=== PATIENT | female | born 1990 | race Caucasian/White ===

== ENCOUNTER → 2023-07-25 | Outpatient (CLI) | payer OTHER ==
[2023-07-25 16:07] LABS: HEMOGLOBIN 12.6 g/dl (12.0-15.5); MEAN CORPUSCULAR HEMOGLOBIN 30.1 pg (27.0-33.0); MEAN CORPUSCULAR HGB CONC 32.3 g/dl (32.0-36.5); MEAN CORPUSCULAR VOLUME 93.3 fl (80.0-96.0); PLATELET COUNT, AUTOMATED 334 10^3/uL (150-450); RED BLOOD COUNT 4.18 10^6/uL (4.00-5.40)
[2023-07-25 16:20] LABS: HEMOGLOBIN A1c 5.2 % (4.0-6.0)
== END ==
LOC: M PLALAB 12:34
PROVIDERS: ATTEND Obstetrics & Gynecology
DX: E28.2 Polycystic ovarian syndrome (principal)

== ENCOUNTER → 2023-08-01 | Outpatient (CLI) | payer OTHER | LOC: M RAD 14:43 | PROVIDERS: ATTEND Obstetrics & Gynecology | DX: E28.2 Polycystic ovarian syndrome (principal) ==

== ENCOUNTER → 2023-12-05 | Outpatient (REF) | payer OTHER ==
[2023-12-07 15:48] LABS: HPV APTIMA Not Detected (Not Detected)
== END ==
LOC: M SFHCWAGY 15:11
PROVIDERS: ATTEND Obstetrics & Gynecology
DX: Z12.4 Encounter for screening for malignant neoplasm of cervix (principal); R87.610 Atypical squamous cells of undetermined significance on cytologic smear of cervix (ASC-US)
CPT/HCPCS: 87624; G0123

== ENCOUNTER 2025-01-15 13:46 | Outpatient (CLI) | payer OTHER ==
[~2025-01-15] VITALS: Ht 165.1 cm; Wt 68.1 kg
[~2025-01-15 13:46] MED LIST: ALBUTEROL SULFATE 2.5 MG/0.5 ML INH CONCENTRATE NEB SOLN INH PRN; EPINEPHrine INJ 1 MG/ML 1ML AMP IM PRN; diphenhydrAMINE 50 MG/ML VIAL IV PRN
[2025-01-15] MEDS: FERRIC CARBOXYMALTOSE 750 MG (VIAL MATE) IN 100ML NS IV ONE (14:45)
[2025-01-15 15:25] VITALS: BP 122/73; O2SAT 99
== END 2025-01-15 15:30 | disposition home or self-care (01) ==
LOC: M INFU 13:46
PROVIDERS: ATTEND Physician Assistant
DX: D50.9 Iron deficiency anemia, unspecified (principal)
CPT/HCPCS: 96365; J1439

== ENCOUNTER → 2025-01-16 | Outpatient (CLI) | payer OTHER | LOC: M WHC 11:47 | PROVIDERS: ATTEND Obstetrics & Gynecology | DX: N84.0 Polyp of corpus uteri (principal) ==

== ENCOUNTER 2025-01-22 13:45 | Outpatient (CLI) | payer OTHER ==
[2025-01-22] MEDS: FERRIC CARBOXYMALTOSE 750 MG (VIAL MATE) IN 100ML NS IV ONE (14:22)
[2025-01-22 14:40] VITALS: BP 115/58; O2SAT 100
== END 2025-01-22 14:40 ==
LOC: M INFU 13:45
PROVIDERS: ATTEND Physician Assistant
DX: D50.9 Iron deficiency anemia, unspecified (principal)
CPT/HCPCS: 96365; J1439

== ENCOUNTER → 2025-03-05 | Outpatient (CLI) | payer OTHER ==
[~2025-03-05] MED LIST changes: +ALBU10.7; -ALBUTEROL SULFATE 2.5 MG/0.5 ML INH CONCENTRATE NEB SOLN INH PRN; +AMPH1CAP14 PO; +CALC500T38 PO; -EPINEPHrine INJ 1 MG/ML 1ML AMP IM PRN; +ERGO500029 PO; +FERR325T19 PO; +PROA1AER2 IN; +PROBCAP2 PO; +SEMA1PEN4; +VITA100093 PO; -diphenhydrAMINE 50 MG/ML VIAL IV PRN
[2025-03-05 18:28] LABS: ALT/SGPT 20 U/L (7.0-40); AST/SGOT 12 U/L (<34); CALCIUM LEVEL 9.9 MG/DL (8.5-10.1); CARBON DIOXIDE LEVEL 30 MMOL/L (20-31); CHLORIDE LEVEL 103 MMOL/L (98-107); CREATININE FOR GFR 0.61 MG/DL (0.55-1.30); GLOMERULAR FILTRATION RATE > 90.0 (>60); IRON (FE) 90 UG/DL (50-170); PERCENT SATURATION 34.2 % (13.2-45.0); POTASSIUM SERUM 4.6 MMOL/L (3.5-5.1); SODIUM LEVEL 144 MMOL/L (136-145)
[2025-03-05 18:56] LABS: BASO # 0.0 10^3/uL (0.0-0.2); BASO % 0.2 % (0.0-1.0); EOS # 0.3 10^3/uL (0.0-0.5); EOS % 5.0 % (0.0-3.0); LYMPH # 2.3 10^3/uL (1.5-5.0); LYMPH % 41.2 % (24.0-44.0); MONO # 0.5 10^3/uL (0.0-0.8); MONO % 8.0 % (2.0-8.0); NEUTROPHILS # 2.5 10^3/uL (1.5-8.5); NEUTROPHILS % 45.2 % (36.0-66.0); PLATELET COUNT, AUTOMATED 249 10^3/uL (150-450)
== END ==
LOC: M PLALAB 13:02
PROVIDERS: ATTEND Physician Assistant
DX: D50.9 Iron deficiency anemia, unspecified (principal)

== ENCOUNTER 2025-03-12 10:01 | Day surgery (SDC) | payer OTHER ==
[~2025-03-12] VITALS: Ht 165.1 cm; Wt 64.9 kg
[2025-03-12] MEDS ORDERED: dexAMETHasone 4 MG/ML 1 ML VIAL As Ordered ONE (10:14)
[2025-03-12] MEDS ORDERED: ONDANSETRON 4MG 2ML VIAL As Ordered ONE (10:14)
[2025-03-12] MEDS ORDERED: KETOROLAC 30 MG/ML 1 ML VIAL As Ordered ONE (10:14)
[2025-03-12] MEDS ORDERED: LIDOCAINE 2% 100 MG/5 ML SDV (FOR ANES.) As Ordered ONE (10:14)
[2025-03-12] MEDS ORDERED: MIDAZOLAM INJ 2 MG/2 ML VIAL As Ordered ONE (10:18)
[2025-03-12 10:34] LABS: PLATELET COUNT, AUTOMATED 216 10^3/uL (150-450)
[2025-03-12] MEDS: LR 1,000 ML IV SCH (10:56)
[2025-03-12] MEDS ORDERED: ACETAMINOPHEN 1000MG/100ML IV BAG As Ordered ONE (12:24)
[2025-03-12] MEDS: SILVER NITRATE APPLICATOR (1 = QTY 10) As Ordered ONE (12:44)
[2025-03-12] MEDS ORDERED: MORPHINE 2 MG/ML 1 ML VIAL IV PRN (12:55)
[2025-03-12] MEDS: MEPERIDINE 25 MG/ML 1 ML VIAL IV PRN (13:19)
[2025-03-12] MEDS: ONDANSETRON 4MG 2ML VIAL IV PRN (13:35)
[2025-03-12 14:30] VITALS: BP 98/54; TEMP 98; O2SAT 97
[2025-03-12] MEDS ORDERED: MORPHINE 4 MG/ML 1 ML VIAL IV PRN (14:55)
== END 2025-03-12 14:40 | disposition home or self-care (01) ==
LOC: M SDC 10:01
PROVIDERS: ATTEND Obstetrics & Gynecology
DX: N93.9 Abnormal uterine and vaginal bleeding, unspecified (principal); N85.8 Other specified noninflammatory disorders of uterus; E28.2 Polycystic ovarian syndrome; J45.909 Unspecified asthma, uncomplicated; Z79.899 Other long term (current) drug therapy; Z88.8 Allergy status to other drugs, medicaments and biological substances
CPT/HCPCS: 36415; 58558; 85027; 86850; 86900; 86901; 88305; J0131; J1100; J1885; J2175; J2250; J2405; J3010